=== PATIENT | male | born 1955 | race Two or more races ===

== ENCOUNTER 2021-06-27 12:00 | Inpatient (IN) | payer OTHER ==
[~2021-06-27] VITALS: Ht 172.7 cm; Wt 84.4 kg
== END 2021-06-30 14:10 | disposition home or self-care (01) | DRG 349 ==
LOC: O/R 06-29 05:36 → SURH 06-29 10:00
PROVIDERS: ADMIT Surgery; ATTEND Surgery
PROC: 0DBP7ZZ Excision of Rectum, Via Natural or Artificial Opening (ICD-10-PCS; principal; 2021-06-29 10:00)
DX: C7A.026 Malignant carcinoid tumor of the rectum (principal); Z20.822 Contact with and (suspected) exposure to COVID-19